=== PATIENT | male | born 1995 | race Caucasian/White ===

== ENCOUNTER 2017-07-09 19:46 | Emergency (ER) | payer SELFPAY ==
[2017-07-10 00:42] VITALS: BP 123/76
== END 2017-07-10 00:42 | disposition home or self-care (01) ==
LOC: ED 19:46
DX: L02.214 Cutaneous abscess of groin (principal)
CPT/HCPCS: 90715; J0696; J2001

== ENCOUNTER 2017-07-11 13:34 | Emergency (ER) | payer SELFPAY ==
[~2017-07-11] VITALS: Ht 180.3 cm; Wt 119.7 kg
[2017-07-11 13:44] VITALS: Ht 180.3 cm; Wt 119.7 kg
[2017-07-11 14:49] VITALS: BP 120/64
== END 2017-07-11 14:49 | disposition home or self-care (01) ==
LOC: ED 13:34
DX: Z48.01 Encounter for change or removal of surgical wound dressing (principal)